=== PATIENT | male | born 1980 | race American Indian/Alaskan Native ===

== ENCOUNTER 2021-07-07 13:55 | Emergency (ER) | payer SELFPAY ==
[2021-07-07 16:27] VITALS: BP 155/85
--- NOTE | 2021-07-07 18:11 | Emergency Department Report ---
ED General Adult HPI - General Chief complaint: Skin/Abscess/Foreign Body Stated complaint: BOIL Time Seen by Provider: 07/07/21 17:36 Source: patient Mode of arrival: Ambulatory Limitations: No Limitations - History of Present Illness Initial comments: 41-year-old male patient presents to the emergency department with complaints of painful swelling to his right groin area for approximately 1 week. No preceding fall, trauma, or injury. No history of similar symptoms. Patient states his symptoms are intermittent, resolving spontaneously, and typically become more noticeable when he is exercising at the gym or straining to have a bowel movement. No history of prior abdominal surgeries. No medications prior to arrival. Denies fever, chills, nausea, vomiting, diarrhea, constipation, black/bloody stools, testicular pain/swelling. Denies all other complaints at this time. - Related Data Allergies Allergy/AdvReac Type Severity Reaction Status Date / Time No Known Allergies Allergy Unverified 07/07/21 16:26 ED Review of Systems ROS: Stated complaint: BOIL Other details as noted in HPI Other: GENERAL: Negative for fever, chills, weight change, anorexia, fatigue. ENT: Negative for ear pain, difficulty hearing, sore throat, nasal congestion, epistaxis. CARDIOVASCULAR: Negative for chest pain, palpitations, lower extremity swelling. PULMONARY: Negative for cough, dyspnea, wheezing, orthopnea, cyanosis. GASTROINTESTINAL: Negative for abdominal pain, nausea, vomiting, diarrhea, constipation. MUSCULOSKELETAL: Positive for painful swelling NEUROLOGICAL: Negative for headache, seizure, syncope, paresthesias, weakness. INTEGUMENTARY: Negative for erythema, rash, diaphoresis, laceration, ecchymosis. HEMATOLOGICAL: Negative for hemoptysis, hematemesis, hematochezia, hematuria. PSYCHIATRIC: Negative for hallucinations, suicidal ideation, homicidal ideation, anxiety, depression. ED Past Medical Hx - Past Medical History Previous Medical History?: Yes Hx Hypertension: Yes ED Physical Exam - General Limitations: No Limitations - Other Other exam information: General: Awake, appropriately interactive, no acute distress. Neck: Supple. Full range of motion intact. Cardiovascular: Normal peripheral perfusion. Pulmonary: No respiratory distress. Patient is speaking normally without use of accessory muscles. Skin: No apparent rashes or lesions. Neurological: No facial asymmetry. Speech is clear. Follows commands. Patient is alert and oriented. 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 Soft, easily reducible right inguinal hernia present. No overlying warmth or erythema. Pain is appropriately proportional to exam findings. Psych: Cooperative. Appropriate mood and affect. ED Course Vital Signs 07/07/21 16:26 Temperature 98.1 F Pulse Rate 74 Respiratory 16 Rate Blood Pressure 155/85 O2 Sat by Pulse 100 Oximetry ED Medical Decision Making - Medical Decision Making Differential diagnosis including but not limited to: strangulated hernia, incarcerated hernia, lymphangitis, abscess Patient presents to the emergency department with signs/symptoms suggestive of right inguinal hernia. He is afebrile, hemodynamically stable, tolerating oral intake without difficulty, pain is well controlled. No clinical evidence to suggest incarceration/strangulation warranting further diagnostic work-up and/or emergent surgical consultation at this time. Patient will be discharged home with referral to general surgeon for close outpatient follow-up. Patient expressed understanding and is agreeable to plan of care. Activity modification discussed. Strict return precautions provided. History, exam, diagnostic testing, and current condition do not suggest worrisome pathology to warrant further testing, continued ED treatment, admission, or surgical evaluation at this point. Given the low probability of a significant medical illness, it would be more likely to result in harm than benefit to perform further testing at this stage. Discussed findings, presumptive diagnosis, need for follow-up and specific signs/symptoms that should prompt immediate return to the emergency department. Instructions were explained in detail to the patient in addition to giving written discharge information. Patient expressed understanding and was given the opportunity to ask questions, all of which were satisfactorily answered prior to discharge home. Critical care attestation.: If time is entered above; I have spent that time in minutes in the direct care of this critically ill patient, excluding procedure time. ED Disposition Clinical Impression: Right inguinal hernia Disposition: HOME / SELF CARE / HOMELESS Is pt being admited?: No Does the pt Need Aspirin: No Condition: Stable Instructions: Hernia, Adult, [id number] Additional Instructions: Take Tylenol every 4 hours and Motrin every 8 hours as needed for pain. Increase your dietary fiber intake to help keep your stools soft and regular. Consider starting an [id number] stool softener to help limit straining. Avoid squatting and heavy lifting until otherwise instructed by general surgeon. Follow-up with Dr. Bateman, general surgeon, this week. Call tomorrow to schedule an appointment. See referral information below. Return to the emergency department immediately for new or worsening symptoms. Specifically, return to the emergency department immediately for fever, worsening pain, vomiting, black/bloody stools, inability to pass stool, or any other concerns. Referrals: TASNEEM BATEMAN MD [Staff Physician] - 3-5 Days Time of Disposition: 18:14
== END 2021-07-07 18:24 | disposition home or self-care (01) ==
LOC: ED 13:55
DX: K40.90 Unilateral inguinal hernia, without obstruction or gangrene, not specified as recurrent (principal)
CPT/HCPCS: 99281

== ENCOUNTER 2022-06-17 00:19 | Emergency (ER) | payer SELFPAY ==
[2022-06-17 01:20] VITALS: BP 162/90
[2022-06-17 02:15] LABS: Basophils # (Auto) 0.1 K/mm3 (0.0-0.1); Basophils % (Auto) 1.1 % (0.0-1.8); Eosinophils % (Auto) 0.6 % (0.0-4.3); Hematocrit 42.4 % (35.5-45.6); Hemoglobin 14.1 gm/dl (11.8-15.2); Lymphocytes # (Auto) 1.5 K/mm3 (1.2-5.4); Lymphocytes % (Auto) 20.8 % (13.4-35.0); Mean Corpuscular HGB Conc 33 % (32-34); Mean Corpuscular Volume 91 fl (84-94); Monocytes # (Auto) 0.5 K/mm3 (0.0-0.8); Platelet Count 252 K/mm3 (140-440); Red Blood Count 4.65 M/mm3 (3.65-5.03)
[2022-06-17 02:22] LABS: BUN/Creatinine Ratio 11; Blood Urea Nitrogen 12 mg/dL (9-20); Calcium 8.8 mg/dL (8.4-10.2); Hemolysis Index 32
--- NOTE | 2022-06-17 07:58 | Emergency Department Report ---
ED Abdominal Pain HPI - General Chief Complaint: Abdominal Pain Stated Complaint: STOMACH AND GROIN [place] PUI?: No Time Seen by Provider: 06/17/22 07:44 Source: patient Mode of arrival: Ambulatory Limitations: No Limitations - History of Present Illness Initial Comments: Patient is a 42-year-old male that comes to the ER with abdominal pain. He has a known inguinal hernia. He reports that the hernia is coming in and out. He h as no nausea vomiting. Last BM was yesterday and was normal. He has not followed with the surgeon for the hernia. His vital signs are normal. No tachycardia or hypotension. He has no fever. Patient is ambulatory, nontoxic and [id number] on exam. MD Complaint: abdominal pain -: Gradual, month(s) Location: RLQ Migration to: no migration Severity: mild Severity scale (0 -10): 3 Associated Symptoms: denies other symptoms. denies: nausea, vomiting, diarrhea, fever, chills, constipation, dysuria, hematemesis, hematochezia, melena, hematuria, anorexia, syncope - Related Data Allergies Allergy/AdvReac Type Severity Reaction Status Date / Time No Known Allergies Allergy Unverified 07/07/21 16:26 ED Review of Systems ROS: Stated complaint: STOMACH AND GROIN [place] Other details as noted in HPI Comment: All other systems reviewed and negative ED Past Medical Hx - Past Medical History Previous Medical History?: Yes Hx Hypertension: Yes - Surgical History Past Surgical History?: No - Family History Family history: no significant - Social History Smoking Status: Never Smoker Substance Use Type: None ED Physical Exam - General Limitations: No Limitations General appearance: alert, in no apparent distress - Head Head exam: Present: atraumatic, normocephalic - Eye Eye exam: Present: normal appearance - ENT ENT exam: Present: mucous membranes moist - Neck Neck exam: Present: normal inspection - Respiratory Respiratory exam: Present: normal lung sounds bilaterally. Absent: respiratory distress - Cardiovascular Cardiovascular Exam: Present: regular rate, normal rhythm. Absent: systolic murmur, diastolic murmur, rubs, gallop - GI/Abdominal GI/Abdominal exam: Present: soft, normal bowel sounds - Rectal Rectal exam: Present: deferred - Extremities Exam Extremities exam: Present: normal inspection - Back Exam Back exam: Present: normal inspection - Neurological Exam Neurological exam: Present: alert, oriented X3 - Psychiatric Psychiatric exam: Present: normal affect, normal mood - Skin Skin exam: Present: warm, dry, intact, normal color. Absent: rash ED Course Vital Signs 06/17/22 01:14 Temperature 98.4 F Pulse Rate 79 Respiratory 18 Rate Blood Pressure 162/90 [Right] O2 Sat by Pulse 100 Oximetry ED Medical Decision Making - Lab Data Result diagrams: 06/17/22 01:32 06/17/22 01:32 - Medical Decision Making Labs 06/17/22 06/17/22 06/17/22 01:32 01:32 Unknown WBC 7.1 RBC 4.65 Hgb 14.1 Hct 42.4 MCV 91 MCH 30 MCHC 33 RDW 16.0 H Plt Count 252 Lymph % (Auto) 20.8 Cass % (Auto) 7.0 Eos % (Auto) 0.6 Baso % (Auto) 1.1 Lymph # (Auto) 1.5 Cass # (Auto) 0.5 Eos # (Auto) 0.0 Baso # (Auto) 0.1 Seg Neutrophils % 70.5 H Seg Neutrophils # 5.0 Sodium 136 L Potassium 3.7 Chloride 100.0 Carbon Dioxide 23 Anion Gap 17 BUN 12 Creatinine 1.1 Estimated GFR > 60 BUN/Creatinine Ratio 11 Glucose 132 H Calcium 8.8 Lipase 42 Urine Color Straw Urine Turbidity Clear Urine pH 7.0 Ur Specific [place] 1.005 Urine Protein <15 mg/dl Urine Glucose (UA) Negative Urine Ketones Negative Urine Blood Trace Urine Nitrite Negative Ur Reducing Substances Not Reportable Urine Bilirubin Negative Urine Ictotest Not Reportable Urine Urobilinogen < 2.0 Ur Leukocyte Esterase Trace Urine WBC (Auto) 2.0 Urine RBC (Auto) 2.0 U Epithel Cells (Auto) < 1.0 Vital Signs 06/17/22 01:14 Temperature 98.4 F Pulse Rate 79 Respiratory 18 Rate Blood Pressure 162/90 [Right] O2 Sat by Pulse 100 Oximetry Labs noted. UA noted. Abdomen soft nontender. No palpable hernia on exam. Patient educated proper lifting with a hernia. I have explained to him that he needs to see general surgery for definitive care. He verbalizes understanding. On discharge exam patient is ambulatory and taking p.o. Patient being discharged home with discharge plan of care including diet, activity, medications and follow-up. He verbalizes understanding of plan of care. - Differential Diagnosis ro incarc hernia/uti/k stone/pancreatitis Critical care attestation.: If time is entered above; I have spent that time in minutes in the direct care of this critically ill patient, excluding procedure time. ED Disposition Clinical Impression: Inguinal hernia Qualifiers: Recurrence: not specified as recurrent Disposition: 01 HOME / SELF CARE / HOMELESS Is pt being admited?: No Does the pt Need Aspirin: No Condition: Stable Instructions: Inguinal Hernia, Adult, [id number] Additional Instructions: avoid straining follow up with pcp/gen surg referrals below diet and activity as tolerated motrin or tylenol for pain Referrals: CRISTA KRAUS MD [Primary Care Provider] - 3-5 Days KADIE ROA MD [Staff Physician] - 3-5 Days Forms: Work/School Release Form(ED) Time of Disposition: 10:14
[2022-06-17] MEDS ORDERED: IBUPROFEN 800 MG TAB PO ONE (09:42)
[2022-06-17 10:07] LABS: Color,Urine Straw (Yellow)
[2022-06-17 10:08] LABS: Bilirubin,Urine Negative (Negative); Blood,Urine Trace (Negative); Protein,Urine <15 mg/dL mg/dL (Negative)
[2022-06-17 10:09] LABS: Urobilinogen,Urine < 2.0 mg/dL (<2.0)
== END 2022-06-17 11:00 | disposition home or self-care (01) ==
LOC: ED 00:19
DX: K40.90 Unilateral inguinal hernia, without obstruction or gangrene, not specified as recurrent (principal); I10 Essential (primary) hypertension; Z98.890 Other specified postprocedural states
CPT/HCPCS: 36415; 80048; 81001; 83690; 85025; 99283